=== PATIENT | male | born 1950 | race Native Hawaiian/Other Pacific Islander ===

== ENCOUNTER 2016-04-24 11:20 | Emergency (ER) | payer OTHER ==
[~2016-04-24] VITALS: Ht 157.5 cm; Wt 101.6 kg
[~2016-04-24 11:20] MED LIST: ALLO100T22 PO; AMLO2.5T PO; ARICEPT ODT10 MG PO; CITALOPRAM40 MG PO; DIAZ2TAB PO; LEVO0.0723 PO; NAMENDA10 MG PO; ZESTRIL40 MG PO
[2016-04-24 15:37] LABS: POTASSIUM 4.7 mmol/L (3.6-5.2)
[2016-04-24 15:40] LABS: PLATELET COUNT 218 K/uL (142-355)
[2016-04-24 19:04] VITALS: BP 127/98; TEMP 98
== END 2016-04-24 19:10 | disposition home or self-care (01) ==
LOC: ED 11:20
PROVIDERS: Specialist
DX: N13.39 Other hydronephrosis (principal); N28.89 Other specified disorders of kidney and ureter
CPT/HCPCS: 80053; 81000; 82150; 83690; 85027; 96374; 96375; 96376; 99284; J1885; J2270; J2550

== ENCOUNTER 2016-06-20 07:54 | Outpatient (CLI) | payer OTHER ==
[~2016-06-20] VITALS: Ht 152.4 cm; Wt 98.0 kg
== END 2016-06-20 10:00 | disposition home or self-care (01) ==
LOC: NM 07:54
DX: Z01.810 Encounter for preprocedural cardiovascular examination (principal); I10 Essential (primary) hypertension
CPT/HCPCS: A9500; J2785